=== PATIENT | male | born 2000 | race African-American/Black ===

== ENCOUNTER 2022-02-07 00:07 | Emergency (ER) | payer OTHER, SELFPAY ==
[2022-02-07] VITALS (10 sets, daily range): BP systolic 114–148; BP diastolic 64–91; PULSE 71–85; RESP 14–16; TEMP 36.2; O2SAT 98–100
--- NOTE | ~2022-02-07 | CT_ITS ---
EXAMINATION: CT abdomen pelvis wo con DATE: 02/07/2022 00:36 INDICATION: Low abdominal pain. Hematuria. TECHNIQUE: Computed tomography (CT) of the abdomen and pelvis was performed without intravenous contr ast. Automated exposure control and iterative reconstruction technique were employed. The dose-length product was 891.01 mGy-cm. COMPARISON: None. FINDINGS: The visualized portions of the lung bases are clear without pneumonia or pleural effusion. The heart size is normal. No pericardial effusion. The liver, gallbladder, spleen, pancreas, adrenal glands, and kidneys are normal. There is no urolithiasis. There are no dilated loops of bowel. The ap pendix is normal. There are no pathologically enlarged lymph nodes. There is no free intraperitoneal fluid. The bones are unremarkable. IMPRESSION: 1. No etiology for the patient's symptoms. Reviewed, dictated and finalized at location A.
--- NOTE | 2022-02-07 00:17 | ED.MALEGU ---
HPI - Male Genitourinary General Chief complaint: Urogenital-Male Stated complaint: groin pain, hematuria Time Seen by Provider: 02/07/22 00:11 Source: patient Mode of arrival: ambulatory Limitations: no limitations History of Present Illness HPI Narrative: This is a 21-year-old male that presents to the emergency department for hematuria. Noted tonight just about 30 minutes prior to arrival. Associated with right lower quadrant abdominal pain that radiates into his testicle. Reports some discomfort with urination. Patient would like to be tested and treated presumptively for STDs. Denies fever, vomiting, flank pain, or testicular swelling or redness. Related Data Home Medications Medication Instructions Recorded Confirmed No Home Medications 02/07/22 Allergies Allergy/AdvReac Type Severity Reaction Status Date / Time No Known Allergies Allergy Verified 02/07/22 02:13 Review of Systems Review of Systems: CONSTITUTIONAL: Denies fever GASTROINTESTINAL: Reports abdominal pain, nausea. Denies vomiting, or diarrhea. GENITOURINARY: Reports dysuria and hematuria. All systems reviewed & are unremarkable except as noted in HPI and below PMFSH Past Medical History Medical History (Updated 02/07/22 @ 02:11 by Pascale Gordon PA-C) No active medical problems Social History Social History (Updated 02/07/22 @ 00:19 by Pascale Gordon PA-C) Smoking status: Never smoker Exam Narrative: GENERAL: Well-appearing, well-nourished, and in no acute distress. HEAD: Normocephalic, atraumatic. EYES: EOMI. CHEST: Clear to auscultation. No respiratory distress. No wheezes rales or rhonchi HEART: Regular rate and rhythm. No murmur heard. Normal peripheral pulses. ABDOMEN: Soft, nontender, nondistended, normal active bowel sounds. No CVA tenderness EXTREMITIES: Normal range of motion. No edema. SKIN: Warm, dry, no rash. NEURO: No focal deficits. Alert and oriented x3. PSYCH: Normal mood and affect MALE GENITAL: Normal appearing testicles without erythema or swelling. Testicles are nontender. No abnormal urethral discharge. No rashes or lesions noted Course Vital Signs Vital signs: Vital Signs Temperature 97.1 F L 02/07/22 00:15 Pulse Rate 85 02/07/22 00:15 Respiratory Rate 14 02/07/22 00:15 Blood Pressure 133/88 02/07/22 00:15 Pulse Oximetry 99 02/07/22 00:15 Oxygen Delivery Room Air 02/07/22 00:15 Temperature 97.1 F L 02/07/22 00:15 Pulse Rate 71 02/07/22 02:38 Respiratory Rate 16 02/07/22 02:38 Blood Pressure 148/81 H 02/07/22 02:38 Pulse Oximetry 99 02/07/22 02:38 Oxygen Delivery Room Air 02/07/22 00:15 MDM - Male Genitourinary MDM Narrative Medical decision making narrative: Patient presents to the emergency department for hematuria noted tonight with some lower abdominal discomfort. Patient's pain largely resolved upon arrival to the ED. He is afebrile and nontoxic-appearing. CBC does show leukocytosis to 17.3. Metabolic panel without concerning findings. UA without evidence of infection. Does show greater than [address] scan of the abdomen and pelvis is without acute findings. Patient was updated on case findings. Patient would like to be tested and presumptively treated for STDs. Spoke with patient about his symptoms possibly be due to him having passed a kidney stone. He was reporting some pain radiating into the testicle. The testicle is not swollen and is nontender to palpation. Patient will be given urology for follow-up. He was given warnings to return to the ER Lab Data Attestation: I reviewed the patient's lab results. Result diagrams: 02/07/22 00:26 02/07/22 01:11 Labs: Lab Results 02/07/22 02/07/22 02/07/22 Range/Units 00:26 00: 00:26 WBC 17.3 H (4.5-10.0) K/mm3 RBC 4.90 (4.6-6.20) M/mm3 Hgb 14.9 (14.0-18.0) g/dL Hct 44.7 (42.0-52.0) % MCV 91.2 (80-100) fl MCH
[2022-02-07 00:35] LABS: Basophils Absolute Auto 0.1 K/mm3 (0.0-0.1); Basophils Percent Auto 0.3 % (0.2-1.2); Eosinophils Absolute Auto 0.4 K/mm3 (0-0.3); Eosinophils Percent Auto 2.1 % (0-4.4); Hematocrit 44.7 % (42.0-52.0); Hemoglobin 14.9 g/dL (14.0-18.0); Immature Granulocyte Percent A 0.6 % (0-0.5); Lymphocytes Absolute Auto 3.71 K/mm3 (0.9-3.2); Lymphocytes Percent Auto 21.4 % (18.3-44.2); Mean Corpuscular HGB Conc 33.3 g/dl (32-36); Mean Corpuscular Hemoglobin 30.4 pg (26-34); Mean Corpuscular Volume 91.2 fl (80-100); Mean Platelet Volume 10.3 fl (7.4-10.4); Monocytes Absolute Auto 1.4 K/mm3 (0.1-0.6); Monocytes Percent Auto 7.9 % (2.6-8.5); Neutrophils Absolute Auto 11.7 K/mm3 (1.3-6.7); Neutrophils Percent Auto 67.7 % (45.5-73.1); Platelet Count Result 228 k/mm3 (150-375); White Blood Count 17.3 K/mm3 (4.5-10.0)
[2022-02-07 00:37] LABS: Appearance Urine Clear (Clear); Bilirubin Urine 1+ (Negative); Blood Urine 3+ (Negative); Color Urine Yellow (Yellow); Glucose Urine UA Negative (Negative); Ketones Urine Negative (Negative); Leukocyte Esterase Ur Negative LEU/UL (Negative); Nitrate Urine Negative (Negative); Protein Urine 2+ mg/dL (Negative); Specific Grav Ur >= 1.030 (1.001-1.035); pH Urine 5.5 (5.0-9.0)
[2022-02-07 00:42] LABS: Add Urine Microscopic? YES; Bacteria Urine Trace /hpf; Mucus Urine Moderate /lpf; RBC Urine >75 /hpf (0-2); Squamous Epithelial Cell Urine Rare /hpf (Few); WBC Urine 0-3 /hpf
[2022-02-07 02:04] LABS: Anion Gap 7 mmol/L (8-16); Blood Urea Nitrogen 19 mg/dL (9-20); Calcium 8.7 mg/dL (8.4-10.2); Carbon Dioxide 25 mmol/L (22-30); Chloride 104 mmol/L (98-107); Estimated CRCL calculation 129 ml/min; Estimated Glomerular Filt Rate > 60; Glucose 93 mg/dL (65-110); Potassium 3.9 mmol/L (3.4-5.0); Sodium 136 mmol/L (137-145)
[2022-02-07] MEDS: cefTRIAXone 1 GM VIAL 0.5 GM IM (02:35)
[2022-02-07] MEDS: LIDOCAINE HCL 1% LOCAL INJ 20 ML VIAL INFILTRATE (02:35)
== END 2022-02-07 02:41 | disposition home or self-care (01) ==
PROVIDERS: Physician Assistant; Emergency Provider Emergency Medicine
DX: R31.0 Gross hematuria (principal)
CPT/HCPCS: 36415; 74176; 80048; 81001; 85025; 87491; 87591; 87661; 96372; 99284; J0696